=== PATIENT | male | born 1975 | race African-American/Black ===

== ENCOUNTER 2020-06-23 01:10 | Emergency (ER) | payer SELFPAY ==
[2020-06-23 01:28] VITALS: BP 135/76; PULSE 95; TEMP 98.3; BMI 22.9
[2020-06-23 02:36] LABS: HEMATOCRIT 37.1 % (35.4-49); HEMOGLOBIN 12.3 GM/dL (11.7-16.9); MCH 29.9 pg (25.7-33.7); MCHC 33.2 g/dl (32.0-35.9); MEAN CELL VOLUME 89.9 fl (80-96); MEAN PLT VOLUME 9.6 fl (7.5-11.1); PLATELET COUNT 156 K/MM3 (134-434); RBC 4.13 M/mm3 (4.00-5.60); RDW 14.2 % (11.9-15.9); WHITE BLOOD COUNT 8.7 K/mm3 (4.0-10.0)
[2020-06-23 02:56] LABS: CHLORIDE 106 mmol/L (98-107); SODIUM 139 mmol/L (136-145)
[2020-06-23 02:58] LABS: CALCIUM 8.6 mg/dL (8.5-10.1)
[2020-06-23 02:59] LABS: ALBUMIN 3.4 g/dl (3.4-5.0); ANION GAP 6 MMOL/L (8-16); BLOOD UREA NITROGEN 11.8 mg/dL (7-18); CO2 28 mmol/L (21-32); GLUCOSE,RANDOM 80 mg/dL (74-106)
[2020-06-23 03:02] LABS: CREATININE 0.8 mg/dL (0.55-1.3); SGOT/AST 36 U/L (15-37)
[2020-06-23 03:04] LABS: BILIRUBIN,TOTAL 0.5 mg/dL (0.2-1); TOT PROT 7.1 g/dl (6.4-8.2)
[2020-06-23 03:05] LABS: ALK PHOS 64 U/L (45-117)
[2020-06-23 03:11] LABS: SGPT/ALT 27 U/L (13-61)
== END 2020-06-23 06:34 | disposition home or self-care (01) ==
LOC: JER 01:10
DX: R51.9 Headache, unspecified (principal); R07.9 Chest pain, unspecified; M25.561 Pain in right knee
CPT/HCPCS: 36415; 80053; 84484; 85027; 93005; 93010; 99284-25